=== PATIENT | female | born 1990 | race Caucasian/White ===

== ENCOUNTER 2017-11-11 18:11 | Emergency (ER) | payer SELFPAY ==
--- NOTE | 2017-11-11 18:17 | PDOC ---
Rapid Medical Evaluation Time Seen by Provider: 11/11/17 18:15 Medical Evaluation: Allergies Allergy/AdvReac Type Severity Reaction Status Date / Time acetaminophen [From Tylenol] Allergy Verified 04/17/13 16:43 I have performed a brief in-person evaluation of this patient. The patient presents with a chief complaint of: bed bugs bite. the patient has a known exposure to someone with bed bugs. Not worse at night. No itching in between fingers Pertinent physical exam findings: small bites to upper arms I have ordered the following: nothing The patient will proceed to the ED for further evaluation. Discharge Disposition - Diagnosis Bed bug bite Qualifiers: Encounter type: initial encounter Qualified Code(s): W57.XXXA - Bitten or stung by nonvenomous insect and other nonvenomous arthropods, initial encounter - Discharge Dispostion Disposition: HOME Condition at time of disposition: Good - Referrals - Patient Instructions Printed Discharge Instructions: DI for Bed Bug Bites, How to Get Rid of Bed Bugs Additional Instructions: Discharge Instructions: -There is no treatment for bed bug bites; they will resolve on their own -You can use over the counter low potency hydrocortisone cream if needed for itching -Please read the discharge instructions on how to remove bed bugs from your home - Post Discharge Activity
[2017-11-11 18:25] VITALS: BP 106/70; PULSE 77; TEMP 98.3; BMI 28.3
== END 2017-11-11 18:41 | disposition home or self-care (01) ==
LOC: JER 18:11 → JERFT 18:11
DX: S40.861A Insect bite (nonvenomous) of right upper arm, initial encounter (principal); S40.862A Insect bite (nonvenomous) of left upper arm, initial encounter; W57.XXXA Bitten or stung by nonvenomous insect and other nonvenomous arthropods, initial encounter; Y93.89 Activity, other specified; Y92.89 Other specified places as the place of occurrence of the external cause; Y99.8 Other external cause status
CPT/HCPCS: 99281-25